=== PATIENT | male | born 1965 | race Two or more races ===

== ENCOUNTER 2024-07-22 20:45 | Inpatient (IN) | payer MEDICAID, OTHER ==
[~2024-07-22] VITALS: Ht 157.5 cm; Wt 43.6 kg
--- NOTE | 2024-07-22 21:13 | ED.PDOC ---
History of Present Illness HPI Comments This 59-year-old HIV-positive male presented initially to [facility] secondary to general malaise. There, the patient was noted to have multiple abscesses and other skin lesions including a abscess to his gluteal cleft. He endorses increasing weakness. Over the course of stay at [place], he became increasingly tachycardic, diaphoretic, erythematous and febrile. T-max was 100.9. His maximum heart rate there was in the 130s. He was started on sepsis protocol including receiving cefepime, vancomycin and Zosyn. Despite being provided with the 30 mL/kilogram IV fluid bolus, he may tachycardic. However, his heart rate improved to the low 100s. He continued endorsed feeling terrible. The patient refused to lay supine secondary to the ulcer on his back. Additionally, during his workup, he was noted to have a lytic lesion to delay a crust an enlarged prostate. His PSA was normal at [facility]. Unfortunately, [place] does not have Infectious Disease and he was transferred to [facility]. Here, continues to feel unwell. His heart rate continues to be in the 100s. He continues to be febrile. He denies any other complaints. Denies any other signs or symptoms. Denies any other palliative provocative factors. Denies modifying factors. Chief Complaint: General Weakness Time Seen by MD: 20:48 Reviewed Notes: Nurses Notes, Questioned Documents Examiner Notes, Medications, Allergies Information Source: Transfer Record, Emergency Med Personnel, Past Medical Record, PMD Records Mode of Arrival: EMS Severity: Severe Past Medical History PAST MEDICAL HISTORY: HIV Surgical History: Denies all surgeries Family History Family History: Reviewed,noncontributory to illness Social History Smoker: Unobtainable Alcohol: Unobtainable Constitutional: reports: chills, diaphoresis, fatigue, fever, malaise, sweats, weakness EENTM: denies: blurred vision, double vision, ear bleeding, ear discharge, ear ringing, eye pain, hearing loss, nasal discharge, throat pain, throat swelling, voice changes Respiratory: denies: cough, orthopnea, stridor, wheezing Cardiovascular: reports: Dyspnea on exertion, lightheadedness; denies: chest pain Gastrointestinal: denies: abdomen distended, abdominal pain, constipated, diarrhea Genitourinary: denies: burning, dysuria Neurological: reports: weakness Musculoskeletal: denies: back pain Integumetry: reports: change in hair/nails, lesions, wounds Allergic/Immunocompromised: reports: Difficulty Healing Physical Exam General Appearance: Cachectic, Severe Distress, Thin HEENT: Pale Conjuntivae (L), Pale Conj[place]ae (R) Neck: Full Range of Motion, Normal, Supple Respiratory: Lungs Clear, No Accessory Muscle Use Cardiovascular: No Murmur, No Gallop, Tachycardia Breast Exam: Deferred Gastrointestinal: Non Tender, Normal Bowel Sounds, Soft Genitalia: Deferred Pelvic: Deferred Rectal: Deferred Extremities: Inflammation Neurologic: pct II-XII nml as Tested, Depressed Affect, No Motor Deficits Cerebellar Function: NOT DONE Reflexes: NOT DONE Skin: Mottled, Warm, Wounds Lymphatic: No Adenopathy Was a procedure done? Was a procedure done?: No EKG EKG : Mills: Normal Cardiac Rhythm: ST Block: None Hypertrophy: None ST: Normal Differential Dx Considerations may include: sepsis, denies, encephalitis, Kaposi sarcoma, UTI, disseminated HIV X-Ray, Labs, Meds, VS Vital Signs Date Time Temp Pulse Resp B/P (MAP) Pulse Ox O2 Delivery O2 Flow Rate FiO2 07/22/24 20:51 116 07/22/24 20:45 98.4 114 18 112/70 (84) 99 Lab Test 07/22/24 21:39 Range/Units White Blood Count Pending Red Blood Count Pending Hemoglobin Pending Hematocrit Pending Mean Corpuscular Volume Pending Mean Corpuscular Hemoglobin Pending Mean Corpuscular Hemoglobin Concent Pending Red Cell Distribution Width Pending Platelet Count Pending Mean Platelet Volume Pending Neutrophils (%) (Auto) Pending Lymphocytes (%) (Auto) Pending Monocytes (%) (Auto) Pending Basophils (%) (Auto) Pending Neutrophils # (Auto) Pending Lymphocytes # (Auto) Pending Monocytes # (Auto) Pending Sodium Level Pending Potassium Level Pending Chloride Level Pending Carbon Dioxide Level Pending Anion Gap Pending Blood Urea Nitrogen Pending Creatinine Pending Glomerular Filtration Rate Calc Pending BUN/Creatinine Ratio Pending Serum Glucose Pending Lactic Acid Level Pending Calcium Level Pending Total Bilirubin Pending Aspartate Amino Transferase (AST) Pending Alanine Aminotransferase (ALT) Pending Alkaline Phosphatase Pending Total Protein Pending Albumin Pending Time of 1ST Reevaluation: 22:03 Reevaluation 1ST: Unchanged Patient Education/Counseling: Diagnosis, Treatment, Prognosis Family Education/Counseling: No Family Present Departure 1 Departure Time of Disposition: 22:03 Impression: Primary Impression: Sepsis Additional Impressions: HIV disease Abscess Disposition: 09 ADMITTED INPATIENT Admit to: Tele Condition: Guarded Critical Care Note Critical Care Time?: No Stability Stability form required: ANJELICA Campbell MD Jul 22, 2024 21:13
[2024-07-22] MEDS ORDERED: SODIUM CHLORIDE 0.9% 1,000 ML IV ONE (21:15)
[2024-07-22] MEDS ORDERED: VANCOMYCIN 1GM/250ML KIT 250 ML IV ONE (21:15)
[2024-07-22] MEDS ORDERED: PIPERACILLIN-TAZOB 3.375GM 100 ML IV ONE (21:15)
[2024-07-22] MEDS ORDERED: DOCUSATE SOD 100 MG CAP PO PRN ×2 (22:00→23:30)
[2024-07-22] MEDS ORDERED: MORPHINE SULFATE INJ 2 MG/ml SYRG IV PRN ×2 (22:00)
[2024-07-22] MEDS ORDERED: ACETAMINOPHEN 325 MG TAB PO PRN (22:00)
[2024-07-22] MEDS ORDERED: ONDANSETRON HCL 4 MG/2 ML VIAL IV PRN (22:00)
[2024-07-22] MEDS ORDERED: NITROGLYCERIN 0.4 MG SL TAB SL PRN (22:00)
[2024-07-22] MEDS: SODIUM CHLOR 0.9% PF (SALINE LOCK) 10ML VIAL/SYR IV SCH (22:00)
[2024-07-22 22:18] LABS: Basophils # (auto) 0 10 ^3/uL (0-0.2); Eosinophils # (auto) 0.3 10 ^3/uL (0-0.8); Eosinophils % (auto) 5.2 % (0.0-7.0); Hematocrit 38.1 % (41.0-53.0); Hemoglobin 12.4 g/dL (13.5-17.5); Lymphocytes # (auto) 0.2 10 ^3/uL (0.4-5.4); Lymphocytes % (auto) 2.9 % (10.0-50.0); Mean Corpuscular Hemoglobin 26.9 pg (28.0-32.0); Mean Corpuscular Hgb Conc. 32.6 g/dL (32.0-36.0); Mean Corpuscular Volume 82.6 fL (80.0-100.0); Monocytes # (auto) 0.1 10 ^3/uL (0-1.3); Monocytes % (auto) 1.2 % (0.0-12.0); Neutrophils # (auto) 5.4 10 ^3/uL (1.6-8.6); Neutrophils % (auto) 90.7 % (37.0-80.0); Nucleated Red Blood Cells % 0.1 %; Platelet Count (auto) 241 10^3/uL (140-450); Red Blood Cells 4.61 10^6/uL (4.5-5.90); Red Cell Distribution Width 15.6 % (11.8-14.3); White Blood Cell 5.9 10^3/uL (4.4-10.8)
[2024-07-22 22:32] LABS: Alanine Aminotransferase 22 U/L (7-40); Albumin 3.3 g/dL (3.2-4.8); Anion Gap 8 (5-15); Aspartate Aminotransferase 19 U/L (13-40); BUN/Creatinine Ratio 29.2 (10.0-20.0); Blood Urea Nitrogen 19 mg/dL (9-23); Carbon Dioxide 26 mmol/L (20-31); Glucose 97 mg/dL (74-106); Potassium 3.9 mmol/L (3.5-5.1); Sodium 142 mmol/L (136-145)
[2024-07-22 22:33] LABS: Bilirubin, Total 0.3 mg/dL (0.2-1.0); Total Protein 6.1 g/dL (5.7-8.2)
[2024-07-22 22:45] LABS: Alkaline Phosphatase 180 U/L (46-116); Calcium 8.5 mg/dL (8.7-10.4); Chloride 108 mmol/L (98-107)
[2024-07-22 23:00] VITALS: PULSE 118; RESP 16; O2SAT 96
--- NOTE | 2024-07-22 23:16 | DVHHPRES ---
History of Present Illness Resident Creating Document: EMILEE DUVALL RESIDENT History of Present Illness Mr. Watt, a 59-year-old male with a history of HIV, transferred from [facility] due to general malaise. The patient appeared tired, fatigued, and toxic. He was admitted to [facility] for multiple abscesses, including in the gluteal cleft, and experienced weakness, tachypnea, diaphoresis, erythema, and fever. Treated for sepsis with cefepime, vancomycin, and Zosyn, he was transferred to [facility] for higher care due to the lack of an infectious disease specialist. Initial labs showed WBC 5.9, hemoglobin 12.4, platelets 241, neutrophils 90.7%, lymphocytes 0.2%, serum creatinine 0.65, lactic acid 1.8, calcium 8.5, magnesium 1.6, serum bilirubin 0.3, AST 19, ALT 22, alkaline phosphatase 180, and TSH 0.63. On admission, he was tachycardic, appeared sick and toxic, with low blood pressure, erythematous sclerae, and thigh skin desquamation. History was extremely limited as patient denied to answer any question despite several polite requests. He was uncooperative and became verbally abusive during the encounter that restricted further details. Past Medical History HIV Past Surgical History Patient did not cooperate in taking history Family History Patient did not cooperate in taking history Past Social History Patient did not cooperate in taking history Review of Systems Review of Systems Details of the other system could not be obtained as patient was not cooperative and cursing the keno writer/runner when tried to obtain more information. during encounter patient repeatedly refused to talk and Crestor keno writer/runner. Allergies: Coded Allergies: NO KNOWN ALLERGIES (Unverified , 07/22/24) Medications Current Medications Medications Dose Ordered Sig/Porsche Route Start Time Stop Time Status Last Admin Dose Admin Sodium Chloride 10 ml Q8HR IV 07/22/24 22:00 UNV Ondansetron HCl 4 mg Q4HP PRN IV 07/22/24 22:00 UNV Docusate Sodium 100 mg BIDPRN PRN PO 07/22/24 22:00 UNV Acetaminophen 650 mg Q6HP PRN PO 07/22/24 22:00 UNV Morphine Sulfate 2 mg Q4HPRN PRN IV 07/22/24 22:00 UNV Nitroglycerin 0.4 mg Q5MINP PRN SL 12/5/24 22:00 UNV Morphine Sulfate 2 mg Q30M PRN IV 07/22/24 22:00 UNV Exam Vital Signs Vital Signs Date Time Temp Pulse Resp B/P (MAP) Pulse Ox O2 Delivery O2 Flow Rate FiO2 07/22/24 20:51 116 07/22/24 20:45 98.4 18 112/70 (84) 99 Exam Physical examination details could not be done as patient was noncooperative Patient is tired, looks toxic, reddish skin all of the body, macerated, peeling skin on the legs. Labs/Xrays Labs Test 07/22/24 21:39 Range/Units White Blood Count 5.9 4.4-10.8 10^3/uL Red Blood Count 4.61 4.5-5.90 10^6/uL Hemoglobin 12.4 L 13.5-17.5 g/dL Hematocrit 38.1 L 41.0-53.0 % Mean Corpuscular Volume 82.6 80.0-100.0 fL Mean Corpuscular Hemoglobin 26.9 L 28.0-32.0 pg Mean Corpuscular Hemoglobin Concent 32.6 32.0-36.0 g/dL Red Cell Distribution Width 15.6 H 11.8-14.3 % Platelet Count 241 140-450 10^3/uL Mean Platelet Volume 7.9 6.9-10.8 fL Neutrophils (%) (Auto) 90.7 H 37.0-80.0 % Lymphocytes (%) (Auto) 2.9 L 10.0-50.0 % Monocytes (%) (Auto) 1.2 0.0-12.0 % Eosinophils (%) (Auto) 5.2 0.0-7.0 % Basophils (%) (Auto) 0.0 0.0-2.0 % Neutrophils # (Auto) 5.4 1.6-8.6 10 ^3/uL Lymphocytes # (Auto) 0.2 L 0.4-5.4 10 ^3/uL Monocytes # (Auto) 0.1 0-1.3 10 ^3/uL Eosinophils # (Auto) 0.3 0-0.8 10 ^3/uL Basophils # (Auto) 0 0-0.2 10 ^3/uL Nucleated Red Blood Cells 0.1 % Sodium Level 142 136-145 mmol/L Potassium Level 3.9 3.5-5.1 mmol/L Chloride Level 108 H 98-107 mmol/L Carbon Dioxide Level 26 20-31 mmol/L Anion Gap 8 5-15 Blood Urea Nitrogen 19 9-23 mg/dL Creatinine 0.65 L 0.700-1.30 mg/dL Glomerular Filtration Rate Calc 108 >90 mL/min BUN/Creatinine Ratio 29.2 H 10.0-20.0 Serum Glucose 97 74-106 mg/dL Lactic Acid Level 1.8 0.4-2.0 mmol/L Calcium Level 8.5 L 8.7-10.4 mg/dL Magnesium Level 1.6 1.6-2.6 mg/dL Total Bilirubin 0.3 0.2-1.0 mg/dL Aspartate Amino Transferase (AST) 19 13-40 U/L Alanine Aminotransferase (ALT) 22 7-40 U/L Alkaline Phosphatase 180 H 46-116 U/L Total Protein 6.1 5.7-8.2 g/dL Albumin 3.3 3.2-4.8 g/dL Thyroid Stimulating Hormone (TSH) 0.63 0.55-4.78 uIU/mL Assessment/Plan Assessment/Plan Sepsis under evaluation -continue Zosyn as prescribed -continue vancomycin as per pharmacy protocol -pending blood culture, urine culture, sputum culture -pending HIV 1 and 2, CD4/CD8 cell count -continue IV fluid as prescribed # HIV --pending blood culture, urine culture, sputum culture -pending HIV 1 and 2, CD4/CD8 cell count -continue IV fluid as prescribed # metabolic encephalopathy --continue Zosyn as prescribed -continue vancomycin as per pharmacy protocol -pending blood culture, urine culture, sputum culture -pending HIV 1 and 2, CD4/CD8 cell count -continue IV fluid as prescribed Goals of care/advance care planning; FULL CODE; discussed with the patient >15 minutes PUD prophylaxis: Pantoprazole DVT prophylaxis: Lovenox Plan discussed with Dr. Rdz, nursing staff, patient Total time spent on patient evaluation, chart review, assessment and plan, discussion discussion >30 minutes Plan discussed with: Patient Plan discussed with: Patient, Other (RN) My Orders Orders - EMILEE DUVALL RESIDENT Procedure Category Date Status Time Admit ADMIT 07/22/24 Transmitted 21:47 Code Status CODE 07/22/24 Transmitted 21:47 Sodium Chloride Lock PHA 07/22/24 Logged (Saline Lock Ns) 22:00 Ondansetron Hcl PHA 07/22/24 Logged (Zofran) 22:00 Docusate Sodium PHA 07/22/24 Logged Capsule (Colace 22:00 Complete Blood Count LAB 07/23/24 Verified 04:00 Comprehensive LAB 07/23/24 Verified Metabolic Panel 04:00 Cardiac DIET 07/23/24 Transmitted Diet-2gna,Lofat,Lochol Breakfast Acetaminophen Tablet PHA 07/22/24 Logged (Tylenol Tablet) 22:00 Morphine Sulfate PHA 07/22/24 Logged Injection 22:00 Nitroglycerin PHA 07/22/24 Logged Sublingual (Ntrostat 22:00 Morphine Sulfate PHA 07/22/24 Logged Injection 22:00 Oxygen By Nasal RT 07/22/24 Transmitted Cannula 21:47 Stat Ekg For Chest STEFAN 07/22/24 In Process Pain 21:47 Notify Md Of Changes [facility] 07/22/24 In Process From Base 21:47 Order Analyst For [facility] 07/22/24 In Process 24 Hours 21:47 Emergency Dysrhythmia [facility] 07/22/24 In Process Protocol 21:47 Rhythm Strips Once [facility] 07/22/24 In Process Every Shift 21:47 Hiv-1 Quant Pcr Ngrph LAB 07/22/24 Logged Genosure 21:49 Blood Culture [facility] 07/22/24 In Process 21:49 Respiratory Culture [facility] 07/22/24 Logged W/ Gs 21:49 Urine Bacterial [facility] 07/22/24 Logged Culture 21:49 Chest Xray 1 View XY 07/22/24 Logged 21:51 Stool Occult Blood LAB 07/22/24 Logged 21:51 EMILEE DUVALL RESIDENT Jul 22, 2024 23:16
[2024-07-22] MEDS ORDERED: PANTOPRAZOLE 40 MG/10 ML VIAL INJ IV ONE (23:30)
[2024-07-22] MEDS: D5W/SOD CHLO 0.9% 1,000 ML IV SCH (23:30)
[2024-07-22] MEDS ORDERED: VANCOMYCIN PER PHARMACY 0 MG IV SCH (23:30)
[2024-07-23] MEDS: PIPERACILLIN-TAZOB 3.375GM 100 ML IV SCH
[2024-07-23 00:11] VITALS: BP 103/67; PULSE 113; RESP 20; TEMP 99.4; O2SAT 97
--- NOTE | 2024-07-23 00:14 | DVH ---
CHEST RADIOGRAPH Indication: pna Technique: Single frontal view of the chest was obtained COMPARISON: None FINDINGS: Lines and Tubes: None Lungs: Clear Pleura: No effusion. No pneumothorax. Cardiomediastinal contours: Unremarkable Bones: Unremarkable IMPRESSION: 1. No acute disease.
[2024-07-23 01:00] VITALS: BP 100/58; PULSE 111; RESP 20; TEMP 99.4; O2SAT 97
[2024-07-23] MEDS ORDERED: ENOXAPARIN SOD 40 MG/0.4 ML SYRINGE SC ONE (02:45)
--- NOTE | 2024-07-23 07:00 | ECG ---
[facility] Test Date: 2024-07-22 Test Time: 20:51:33 Pat Name: LIZZIE DENSON Department: er Room: 0212T Gender: M Shoe Dyer: fernando : 1965 Requested By: ANJELICA GOODEN Order Number: [id number] Reading MD: Measurements Intervals [place] Rate: 116 P: 72 CA: 106 QRS: 73 QRSD: 77 T: 75 QT: 348 QTc: 484 Interpretive Statements Sinus tachycardia Borderline prolonged QT interval Please click the below link to view image of tracing.
--- NOTE | 2024-07-23 07:13 | PRN ---
Misceleneous Note Note Note "Soyfreeze Operator tried to talk to the patient again this morning, but the patient did not respond and did not allow the telegraphic typewriter installer to perform a physical exam. According to the nursing staff, the patient also refused lab tests this morning." EMILEE DUVALL RESIDENT Jul 23, 2024 07:13
[2024-07-23 07:30] VITALS: PULSE 103
[2024-07-23] MEDS: PANTOPRAZOLE 40 MG/10 ML VIAL INJ IV SCH (09:57)
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
--- NOTE | 2024-07-23 18:49 | DVHINCON2 ---
Family History: Patient reports no known family medical history. Allergies: Coded Allergies: NO KNOWN ALLERGIES (Unverified , 07/22/24) Home Meds Unable to Obtain Active Prescriptions or Reported Meds Current Medications Current Medications Medications (Trade) Dose Ordered Sig/Porsche Route PRN Reason Start Time Stop Time Status Last Admin Sodium Chloride (Saline Lock Ns) 10 ml Q8HR IV 07/22/24 22:00 07/23/24 14:43 DC Ondansetron HCl (Zofran) 4 mg Q4HP PRN IV NAUSEA / VOMITING 07/22/24 22:00 07/23/24 14:44 DC Docusate Sodium (Colace Capsule) 100 mg BIDPRN PRN PO FOR CONSTIPATION 07/22/24 22:00 07/23/24 14:44 DC Acetaminophen (Tylenol Tablet) 650 mg Q6HP PRN PO PAIN SCALE 1-3 OR TEMP>100.4 07/22/24 22:00 07/23/24 14:44 DC Morphine Sulfate 2 mg Q4HPRN PRN IV SEVERE PAIN (7-10 PAIN SCALE) 07/22/24 22:00 07/23/24 14:44 DC Nitroglycerin (Ntrostat Sublingual) 0.4 mg Q5MINP PRN SL FOR CHEST PAIN 07/22/24 22:00 07/23/24 14:44 DC Morphine Sulfate 2 mg Q30M PRN IV FOR CHEST PAIN 07/22/24 22:00 07/23/24 14:44 DC Piperacillin Sod/ Tazobactam Sod 100 ml @ 25 mls/hr Q6HR IV 07/23/24 00:00 07/23/24 14:44 DC Vancomycin HCl 0 ml @ 0 mls/hr PER PHARMACY IV 07/22/24 23:30 07/23/24 14:44 DC Dextrose/Sodium Chloride 1,000 ml @ 125 mls/hr Q8H IV 07/22/24 23:30 07/23/24 14:44 DC Pantoprazole Sodium (Protonix) 40 mg DAILY IV 07/23/24 10:00 07/23/24 14:44 DC Docusate Sodium (Colace Capsule) 200 mg DAILYPRN PRN PO FOR CONSTIPATION 07/22/24 23:30 07/23/24 14:44 DC Enoxaparin Sodium (Lovenox) 40 mg DAILY SC 07/24/24 10:00 07/23/24 14:44 DC Vital Signs Vital Signs Date Time Temp Pulse Resp B/P (MAP) Pulse Ox O2 Delivery O2 Flow Rate FiO2 07/23/24 07:30 Room Air* 0 21 07/23/24 07:30 103 07/23/24 01:00 99.4 20 100/58 (72) 97 99.4 Labs/Diagnostic Data Labs Test 07/22/24 21:39 Range/Units White Blood Count 5.9 4.4-10.8 10^3/uL Red Blood Count 4.61 4.5-5.90 10^6/uL Hemoglobin 12.4 L 13.5-17.5 g/dL Hematocrit 38.1 L 41.0-53.0 % Mean Corpuscular Volume 82.6 80.0-100.0 fL Mean Corpuscular Hemoglobin 26.9 L 28.0-32.0 pg Mean Corpuscular Hemoglobin Concent 32.6 32.0-36.0 g/dL Red Cell Distribution Width 15.6 H 11.8-14.3 % Platelet Count 241 140-450 10^3/uL Mean Platelet Volume 7.9 6.9-10.8 fL Neutrophils (%) (Auto) 90.7 H 37.0-80.0 % Lymphocytes (%) (Auto) 2.9 L 10.0-50.0 % Monocytes (%) (Auto) 1.2 0.0-12.0 % Eosinophils (%) (Auto) 5.2 0.0-7.0 % Basophils (%) (Auto) 0.0 0.0-2.0 % Neutrophils # (Auto) 5.4 1.6-8.6 10 ^3/uL Lymphocytes # (Auto) 0.2 L 0.4-5.4 10 ^3/uL Monocytes # (Auto) 0.1 0-1.3 10 ^3/uL Eosinophils # (Auto) 0.3 0-0.8 10 ^3/uL Basophils # (Auto) 0 0-0.2 10 ^3/uL Nucleated Red Blood Cells 0.1 % Sodium Level 142 136-145 mmol/L Potassium Level 3.9 3.5-5.1 mmol/L Chloride Level 108 H 98-107 mmol/L Carbon Dioxide Level 26 20-31 mmol/L Anion Gap 8 5-15 Blood Urea Nitrogen 19 9-23 mg/dL Creatinine 0.65 L 0.700-1.30 mg/dL Glomerular Filtration Rate Calc 108 >90 mL/min BUN/Creatinine Ratio 29.2 H 10.0-20.0 Serum Glucose 97 74-106 mg/dL Hemoglobin A1c 5.5 <5.7 % A1C Lactic Acid Level 1.8 0.4-2.0 mmol/L Calcium Level 8.5 L 8.7-10.4 mg/dL Magnesium Level 1.6 1.6-2.6 mg/dL Total Bilirubin 0.3 0.2-1.0 mg/dL Aspartate Amino Transferase (AST) 19 13-40 U/L Alanine Aminotransferase (ALT) 22 7-40 U/L Alkaline Phosphatase 180 H 46-116 U/L Total Protein 6.1 5.7-8.2 g/dL Albumin 3.3 3.2-4.8 g/dL Thyroid Stimulating Hormone (TSH) 0.63 0.55-4.78 uIU/mL Plasma/Serum Blood Alcohol < 3.0 <10 mg/dL YONI VERAS MD Jul 23, 2024 18:49
[2024-07-24] MEDS ORDERED: ENOXAPARIN SOD 40 MG/0.4 ML SYRINGE SC SCH (10:00)
== END 2024-07-23 14:20 | disposition left against medical advice (07) | DRG 890 ==
LOC: ER 20:45 → EDBD 20:45 → TELE 21:47 → TELE-CENTR 23:49
PROVIDERS: ADMIT Student in an Organized Health Care Education/Training Program; ATTEND Student in an Organized Health Care Education/Training Program
DX: B20 Human immunodeficiency virus [HIV] disease (principal); A41.9 Sepsis, unspecified organism; G93.41 Metabolic encephalopathy; Z53.29 Procedure and treatment not carried out because of patient's decision for other reasons; N40.0 Benign prostatic hyperplasia without lower urinary tract symptoms; L98.9 Disorder of the skin and subcutaneous tissue, unspecified; Z79.899 Other long term (current) drug therapy
CPT/HCPCS: 36415; 71045; 80053; 80320; 83036; 83605; 83735; 84443; 85025; 87040; 93005; G0378; J2470; J2543; J7042